=== PATIENT | female | born 1960 | race Caucasian/White ===

== ENCOUNTER 2016-05-30 23:25 | Inpatient (IN) | payer MEDICAID ==
[~2016-05-30] VITALS: Ht 157.5 cm; Wt 52.5 kg
--- NOTE | 2016-05-30 23:41 | NUR ---
PT TO ED LOBBY WITH FAMILY PENDING BED AVAILABILITY. SHE IS A&O X 4, BREATHING EVEN AND UNLABORED. NO VISUAL SIGNS OF ACUTE OR RESP DISTRESS NOTED.
--- NOTE | 2016-05-31 00:40 | NUR ---
PT IN RM
--- NOTE | 2016-05-31 02:05 | NUR ---
PATIENT SEEN WITH COMPLAINT OF ABDOMINAL PAIN AND VOMITING , REPORTS COLON CANCER. PATIENT WAS SEEN BY MD. PATIENT WANTSMEDICATION VIA HE LEFT CHEST PORT "O"CATH, SAME WAS CLEANED AND ACTIVATED, UNABLE TO ASPIRATE BLOOD, BUT FLUSHED WITH SALINE.PATIENT MEDICATED WITH MORPHINE AND ZOFRAN. SALINE BOLUS IS INFUSING.
[2016-05-31 02:21] LABS: CALCIUM 8.7 mg/dL (8.5-10.1); CARBON DIOXIDE 25.3 mmol/L (21-32); CHLORIDE SERUM 95 mmol/L (98-107); CREATININE SERUM 0.8 mg/dL (0.6-1.0); GFR1 > 60 mL/min; GLUCOSE SERUM 107 mg/dL (74-106); SODIUM SERUM 129 mmol/L (136-145)
[2016-05-31 02:25] LABS: ALKALINE PHOSPHATASE 205 U/L (46-116); ALT/SGPT 13 U/L (14-59); AST/SGOT 22 U/L (15-37); BILIRUBIN TOTAL 0.38 mg/dL (0.20-1.00); TOTAL PROTEIN, SERUM 7.2 g/dL (6.4-8.2)
[2016-05-31 02:28] LABS: ALBUMIN 1.8 g/dL (3.4-5.0); BASOPHIL % 0.3 % (0-2)
[2016-05-31 02:29] LABS: RED CELL DISTRIBUTION WIDTH 17.1 % (11.5-14.5)
[2016-05-31 02:32] LABS: PLATELET COUNT 879 x10^3mcL (130-400)
[2016-05-31 02:34] LABS: CK-MB < 0.5 ng/mL (0-3.6); CREATINE KINASE 30 U/L (26-192)
--- NOTE | 2016-05-31 02:44 | NUR ---
PATIENT RETURN FROM CT SCAN, SEEN SLEEPING AT THIS TIME.
[2016-05-31] MEDS ORDERED: OXYCODONE HYDRO10 M1 PO (03:48)
--- NOTE | 2016-05-31 04:02 | NUR ---
PATIENT IS SLEEPING. WAS MEDICATED WITH MORPHINE. PATIENT IS ADMITTED TO THE HOSPITAL. MRSA SWAB WAS DONE.
[2016-05-31 04:38] LABS: FREE T4 1.32 ng/dL (0.76-1.46); FREE THYROXINE INDEX 3.3 ug/dL (1.4-4.5); T4(THYROXINE) 8.3 ug/dL (4.7-13.3)
[2016-05-31 04:50] LABS: T3 TOTAL 0.57 ng/mL
[2016-05-31 05:00] LABS: MAGNESIUM 1.8 mg/dL (1.8-2.4)
[2016-05-31 05:15] LABS: PHOSPHOROUS 3.9 mg/dL (2.5-4.9)
[2016-05-31 05:17] LABS: CHOLESTEROL/HDL RATIO 9.5
--- NOTE | 2016-05-31 06:37 | NUR ---
PATIENT IS SLEEPING. NO DISTRESS.
--- NOTE | 2016-05-31 07:20 | NUR ---
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
--- NOTE | 2016-05-31 07:25 | NUR ---
ASSISTED PT ONTO BEDSIDE COMMODE, URINE SAMPLE COLLECTED AND SENT TO LAB, EMPTIED PT COLOSTOMY BAG
--- NOTE | 2016-05-31 07:29 | NUR ---
PT REPORTING 10/10 PAIN, STATES THAT THE MORPHINE "ISN'T WORKING", PER PT "THEY USUALLY GIVE ME SOMETHING ELSE BUT I CAN'T REMEMBER WHAT IT IS"; PAGE OUT TO DR. DOWNEY FOR POSSIBLE CHANGE IN PAIN MED ORDERS
--- NOTE | 2016-05-31 07:33 | NUR ---
SPOKE WITH DR. DOWNEY AND NOTIFIED HIM OF PT C/O PAIN, REPORTS HE WILL PLACE AN ORDER FOR DILAUDID
[2016-05-31 07:39] LABS: microscopic required? NO
--- NOTE | 2016-05-31 08:24 | NUR ---
PT SLEEPING, NO ACUTE DISTRESS, BREATHING IS EVEN AND UNLABORED
[2016-05-31 08:39] LABS: urine erythrocyte NEGATIVE (NEGATIVE)
--- NOTE | 2016-05-31 08:43 | NUR ---
PT AAO4, NO ACUTE DISTRESS, PAIN DECREASED TO 7/10, US AT BEDSIDE FOR BLE US
--- NOTE | 2016-05-31 08:45 | NUR ---
TRIED TO CALL REPORT TO MARY CASTRO, WILL CALL BACK, WITH A PATIENT
--- NOTE | 2016-05-31 08:59 | NUR ---
REPORT TO AUGUSTA CASTRO TO ASSUME CARE OF PT; PT TO BE TRANSFERRED TO ROOM 224B
--- NOTE | 2016-05-31 09:30 | NUR ---
REPORT TO EVELYN IN OR; EVELYN FROM OR IN ED TO TAKE PT TO SURGERY, SURGICAL CHECK LIST STARTED, DR. CARLA OLIVER IN ED AND GAVE INFORMED CONSENT FOR PROCEDURE, PT SIGNED CONSENT, NPO SINCE 1999 LAST NIGHT
[2016-05-31 10:27] LABS: AMPHETAMINE QUAL UR NONE DETECTED (NEG <=1000)
[2016-05-31] MEDS ORDERED: ELIQUIS5 MG PO (11:48)
--- NOTE | 2016-05-31 12:15 | NUR ---
Received patient from Recovery, awake and oriented x4, c/o 10/10 abdominal pain from transfer from [facility] to bed, repositioned up for comfort, colostomy to Rt abd with liquid stool noted, IV to rt wrist # 22 with Normal Saline; mid abdomen dressing C/D/I. SCD in place. Oriented to room and call light system, needs anticipated.
--- NOTE | 2016-05-31 12:26 | NUR ---
PAGED DR LAWRENCE TO CLARIFY HEPARIN ORDER.
--- NOTE | 2016-05-31 12:33 | NUR ---
REPAGED DR LAWRENCE.
--- NOTE | 2016-05-31 12:49 | NUR ---
PER EDMOND RODRIGUEZ TO START HEPARIN PROTOCOL.
--- NOTE | 2016-05-31 12:55 | NUR ---
Medicated for pain with Dilaudid 0.5mg IVP and IVF new bag hang, repositioned up for lunch, no acute distress noted; call light within reach.
--- NOTE | 2016-05-31 12:58 | NUR ---
CALLED AND SPOKE WITH PHARMACIST CONCERNING WEIGHT. PATIENT WEIGHTS 100LBS, 45KGS.
[2016-05-31 13:11] VITALS: BP 118/80
--- NOTE | 2016-05-31 13:38 | NUR ---
HEPARIN PROTOCOL INITIATED. HEPARIN INFUSING AT 5ML/HR. NEXT PTT CHECK IS 2000.
--- NOTE | 2016-05-31 13:45 | NUR ---
CALLED AND SPOKE WITH EDMOND RODRIGUEZ TO USE PORTACATH.
[2016-05-31 14:48] VITALS: BP 119/74
--- NOTE | 2016-05-31 15:07 | NUR ---
DR LAWRENCE IN TO SEE PATIENT. WANTS IV DC'D, CATHETER INTACT. SPOKE WITH PHARMACIST, FLAGYL, ZOSYN AND HEPARIN ARE COMPATIBLE. USING PORTACATH IN LEFT CHEST.
--- NOTE | 2016-05-31 16:17 | NUR ---
MEDICATED FOR PAIN WITH DILAUDID 0.5MG IVP FOR 10/01. REPOSITIONED FOR COMFORT. RT HIP CLEAN W/ NS AND WOUND CULTURE OBTAIN; PICTURE TAKEN. FAMILY REMAIN AT BEDSIDE. WILL SEND WOUND SAMPLE TO LAB PER DR. LAWRENCE ORDER. CALL LIGHT WITHIN REACH AND BED LOW IN POSITION.
[2016-05-31 17:03] VITALS: BP 115/74
--- NOTE | 2016-05-31 17:08 | NUR ---
Patient resting in bed with family members at bedside, request patient to sign release medical record, patient provide copies of medical record, copy and place in chart.
--- NOTE | 2016-05-31 17:41 | NUR ---
PATIENT RESTING IN BED EYE CLOSED, FAMILY REMAIN AT BEDSIDE. NO ACUTE DISTRESS NOTED, LT PORTACATH INTACT W/ IVF AND HEPARIN GTTS @ 500 UNITS/HR. DINNER TRAY PLACE ON TABLE DTR WILL ASSIST WITH MEAL. NEEDS ANTICIPATED, CALL LIGHT WITHIN REACH.
--- NOTE | 2016-05-31 19:59 | NUR ---
RECEIVED PT FROM PREVIOUS SHIFT NURSE. PT AOX4. TELE#2, SR. DENIES CP/PRESSURE. PULSES STRONG, NO EDEMA NOTED. LUNG SOUNDS CLEAR, ON RA. BOWEL SOUNDS ACTIVE. COLOSTOMY R ABD. GENERALIZED WEAKNESS, PT AMBULATORY WITH ASSISTANCE. R HIP WOUND, ABD WOUND WITH KERLIX GUAZE IN PLACE DRY AND INTACT. CENTRAL LINE, INTACT AND PATENT. FAMILY AT BEDSIDE. BED IN LOWEST POSITION. CALL LIGHT WITHIN REACH. WILL CONTINUE TO MONITOR.
[2016-05-31 21:30] VITALS: BP 132/78
--- NOTE | 2016-05-31 22:57 | NUR ---
REBOLUS WITH 2700U HEPARIN IV. DECREASED INFUSION BY 200 U/HOUR. PER PROTOCOL. VERIFIED BY MATTHEW HUDSON.
--- NOTE | 2016-06-01 03:37 | NUR ---
PT RESTING IN BED. RR EVEN AND UNLABORED. NO ACUTE DISTRESS NOTED. PT ASKED FOR PAIN MEDS, MEDICATED PER EMAR. IV INTACT AND PATENT. CALL LIGHT WITHIN REACH. BED IN LOWEST POSITION. WILL CONTINUE TO MONITOR.
--- NOTE | 2016-06-01 05:34 | NUR ---
REBOLUS WITH 2700U HEPARIN IV. INCREASED INFUSION BY 200 U/HOUR. PER HEPARIN PROTOCOL. VERIFIED BY MATTHEW HUDSON. NEW INFUSION RATE 900U/HOUR.
[2016-06-01 05:38] VITALS: BP 139/86
--- NOTE | 2016-06-01 06:52 | NUR ---
WOUND CARE PER ORDERS. PT TOLERATED WELL.
[2016-06-01 08:08] LABS: CALCIUM 8.5 mg/dL (8.5-10.1); CARBON DIOXIDE 22.9 mmol/L (21-32); CHLORIDE SERUM 103 mmol/L (98-107); CREATININE SERUM 0.9 mg/dL (0.6-1.0); GFR1 > 60 mL/min; GLUCOSE SERUM 109 mg/dL (74-106); MAGNESIUM 1.9 mg/dL (1.8-2.4); PHOSPHOROUS 3.5 mg/dL (2.5-4.9); POTASSIUM SERUM 3.8 mmol/L (3.5-5.1); SODIUM SERUM 135 mmol/L (136-145)
--- NOTE | 2016-06-01 08:08 | NUR ---
GAVE NORCO FOR COMPLAINTS OF BREAKTHROUGH PAIN.
[2016-06-01 09:12] VITALS: BP 140/87
[2016-06-01 10:16] LABS: PLATELET COUNT 830 x10^3mcL (130-400)
--- NOTE | 2016-06-01 11:00 | NUR ---
PAGE GATED THE [place] RECORDER WITH RESULTS OF H AND H AND PLATELETS. AWAITING ORDERS AT THIS TIME.
--- NOTE | 2016-06-01 11:13 | NUR ---
PATIENT RECEIVED ALERT AND ORIENTED TIMES FOUR. LARGE DRSSSING OT THE ABODMEN NTOED WITH WITH COLOSTOMY BAG IN PLACE AND SHE HAS BEEN EMPTYING INDICATED WITH SOFT STOOL. PATIENT HAS DIMINSIHED BREATH SOUNDS AND BOWEL SOUNDS ARE HYPOACTIVE AT THIST DEVONTE PATIENT HAS SOME TRACE EDEMA TO THE LOWER EXTREMITES AND HAS BEEN GIVEN PAIN MEDICATION FOR PAIN AT 620A ND IS EFFECTIVE AT HTIS TIME. CONTINUED ON IV ANTIBIOITCS AND NO ADVERSE REACTION NOTED. CONTINUED ON HEPARIN FOR NOTED CVT AND PATIEN TIS PENDING TFOR NEXT PTT INDICATED. MAGGIE HAS BBE OOB BUT IS WEAKN BUT TOLERATE DFAIR. SHE HAS A MEDIPORT JAIMEE THE LECFT CHEST WALL AND IS PATENT.PATIENT HAS VITALS AT THIS TIME AT 139/86, 18, 81, 97.3, 98% ON ROOM AIR. PATEINT WITH NOTED LABS OF PTT AT 32.5, CHLORIDE AT 95, NA AT 135, PATIENT TOLERATED DIET AND FLUIDS WELL. PATIEN THAS HX OF COLON CANCER AND LEFT LEG DVT. PATIENT AHS HAD A HEMICOLECTOMY, AND COLOSTOMY PLACEMENT. ASSISTED OOB AND SHE HAS BEEN WT DRESSING CHANGES DAILY TO THE ABDOMEN AND THERAHONEY APPLEID TOT HE BUTTOCK AREAS WELL. PATIENT WILL BE CONTINUE TO BE MONITORED FOR PAIN AND ANY ADVERSE REACTIONS TO PLAN OF CARE. T O
--- NOTE | 2016-06-01 11:24 | NUR ---
GAVE DILAUDID FOR PAIN AND WILL MONITOR FOR EFFECTIVENESS.
[2016-06-01 11:28] LABS: BAND NEUTROPHIL 2 % (0-10); MONOCYTE 3 % (0-7); SEGMENTED NEUTROPHILS 83 % (37-75); rbc morphology (normal/abnorm) ABNORMAL (NORMAL)
[2016-06-01 11:29] LABS: PLATELET MORPHOLOGY PLATELETS INCREASED
--- NOTE | 2016-06-01 13:12 | NUR ---
GAF MORENO FOR BREATHTHROUGH PAIN AND CALLED THE SHUTTLE BUS DRIVER FOR ORDERS INDICATED. AWAITING ORDERS.
[2016-06-01 13:21] VITALS: BP 141/87
--- NOTE | 2016-06-01 13:35 | NUR ---
P.T. 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 S:Pt WAS SEEN AWAKE & ALERT IN BED, SPEAKS [place]STA R[place]/BELARUSIAN, ORIENTED x4, ABLE TO FOLLOW COMMANDS, AGREEABLE & COOPERATIVE W/ P.T., DEMO ABD PAIN (P.S.10/01), NURSE TO MEDICATE; NO C/O DIZZINESS AT THIS TIME; SON IN ROOM & SUPPORTIVE. O:BED MOBILITY: INDEP W/ SIDERAIL IN SUPINE TO SIT TRANSFERS: CG/SBA IN SIT TO STAND W/ FWW GAIT: CG/SBA W/ FWW X 31 FT A: Pt DEMO GOOD RESPONSE TO P.T. SESSION; FALL RISK; REDUCED PACE GAIT; Pt EDUC ON SAFE GAIT, HEP, USE OF CALL LIGHT FOR NURSE ASSIST, ARIANA BALIZED UNDERSTANDING, GOOD FOLLOW THRU; UA=008/94, VE=028, O2 SAT ROOM AIR=96%; COLOSTOMY BAG. P: CONT PT ONCE DAILY 6X/WK X 1 WK; POC & DX DISCUSSED W/ RECONCILIATION ACCOUNTANT; WILL BENEFIT W/ P.T.; TRY STAIR TRNG NEXT TX IF ABLE. EVAL30 GCODES:[id number] [facility] REACH SCORE:24 inches [phone] Pt WANTS TO USE TOILET, REQ CG/SBA FOR TOILETTING W/ FWW, ABLE TO URINATE, ABLE TO PERFORM COLOSTOMY CARE INDEP; Pt EDUC ON HAND PLACEMENT FOR SAFE TRANSFERS; ASSISTED TO BED SAFELY; CALL FULLER, PHONE, TABLE IN REACH; APPRECIATIVE; ON ROOM AIR; CONT PT TA10
[2016-06-01 16:16] LABS: RED CELL DISTRIBUTION WIDTH 19.1 % (11.5-14.5)
[2016-06-01 16:19] LABS: PLATELET COUNT 868 x10^3mcL (130-400)
[2016-06-01 16:35] LABS: BAND NEUTROPHIL 3 % (0-10); BASOPHIL 0 % (0-2); MONOCYTE 3 % (0-7); SEGMENTED NEUTROPHILS 88 % (37-75); rbc morphology (normal/abnorm) ABNORMAL (NORMAL)
[2016-06-01 17:43] VITALS: BP 139/87
--- NOTE | 2016-06-01 18:15 | NUR ---
SEEN BY THE BAND HEAD SAW OPERATOR AND AWAITNG ANY NEW PLAN OF CARE. CONTINUED ON HEPARIN ORDERED AND THE PTT WAS AT 39.2 AND NEEDED BOLUSING AGAIN WITH 1800UNITS. RAISED THE LEVEL NOW TO 1200 PER HOUR. WILL CONTINUE TO MONITOR INDICATED. NEXT PTT AT 2000 TONIGHT. WILL ENDORSE TO THE NEXT SHIFT.
--- NOTE | 2016-06-01 20:03 | NUR ---
RECEIVED PATIENT IN BED AWAKE, ALERT AND ORIENTED WITH NO SIGN OF ACUTE DISTRESS NOTED. TELE# 2 NSR ON MONITOR, DENIES CHEST DISCOMFORT. PATIENT ON HEPARIN DRIP INFUSING AT 1100 UNITS /HR. MEDIPORT TO LEFT CHEST INTACT INFUSING NS AT 50ML/HR. COLOSTOMY BAG TO RT ABDOMEN WITH SMALL AMOUNT OF SOFT STOOL. DRESSING TO ABDOMEN NEWLY CHANGED BY AM SHIFT CDI. WILL CONTINUE TO MONITOR CALL LIGHT WITHIN REACH.
--- NOTE | 2016-06-01 21:09 | NUR ---
PTT-39.8 REBOLUS 1800 UNITS AND INCREASED INFUSION BY 1 ML/HR INFUSING THIS TIME AT 12ML/HR. NEXT PTT SCHEDULED AT 0100 AM.
[2016-06-01 21:25] VITALS: BP 144/83
--- NOTE | 2016-06-01 22:10 | NUR ---
C/O BACKPAIN AT SCALE OF 10/10 PER PATIENT, MEDICATED WITH DILAUDID 1MG IVP PRESCRIBED. K PAD TO BACK APPLIED. WILL CONTINUE TO MONITOR.
[2016-06-02] VITALS (7 sets, daily range): BP systolic 126–146; BP diastolic 80–93
--- NOTE | 2016-06-02 00:35 | NUR ---
AWAKE STILL C/O BACKPAIN ATS LIDIA OF 8/10 PER PATIENT, MEDICATED WITH PERCOCET PO PRESCRIBED.
--- NOTE | 2016-06-02 01:09 | NUR ---
SLEEPING AFTER PAIN MEDS WAS GIVEN. WILL CONTINUE TO MONITOR.
--- NOTE | 2016-06-02 02:03 | NUR ---
AWAKE THIS TIME C/O BACKPAIN AT SCALE OF 10/10 PER PATIENT, MEDICATED WITH DILAUDID 1MG IVP PRESCRIBED. WILL CONTINUE TO MONITOR.
--- NOTE | 2016-06-02 02:41 | NUR ---
PTT-95.2 HOLD HEPARIN INFUSION FOR 1 HR AND REDUCED BY 1 ML/HR PER HEPARIN PROTOCOL. NEXT PTT AT 0645 AM.
--- NOTE | 2016-06-02 05:06 | NUR ---
CHECKED AT INTERVALS FOR NEEDS AND COMFORT, ALL NEEDS ATTENDED. C/O BACKPAIN X3 THE ENTIRE SHIFT AND MEDCIATED PRESCRIBED.
--- NOTE | 2016-06-02 07:10 | NUR ---
REASSESSMENT DONE. PT AWAKE, COOPERATIVE OF CARE. C/O NAUSEA, BACK PAIN 12/01. WILL MEDICATE PER EMAR. DENIES CP, SOB. GENERALIZED WEAKNESS NOTED. WEAK PULSES TO LLE. IV INFUSING WELL TO LEFT CHEST WALL MEDIPORT. PT ON HEPARIN DRIP AT 11ML/HR. BED IN LOW POSITION, CALL LIGHT WITHIN REACH.
[2016-06-02 07:17] LABS: CALCIUM 8.1 mg/dL (8.5-10.1); CARBON DIOXIDE 22.6 mmol/L (21-32); CHLORIDE SERUM 104 mmol/L (98-107); CREATININE SERUM 0.8 mg/dL (0.6-1.0); GFR1 > 60 mL/min; GLUCOSE SERUM 97 mg/dL (74-106); MAGNESIUM 1.8 mg/dL (1.8-2.4); PHOSPHOROUS 2.9 mg/dL (2.5-4.9); POTASSIUM SERUM 3.8 mmol/L (3.5-5.1); SODIUM SERUM 135 mmol/L (136-145)
[2016-06-02 07:20] LABS: RED CELL DISTRIBUTION WIDTH 19.1 % (11.5-14.5)
[2016-06-02 07:21] LABS: PLATELET COUNT 765 x10^3mcL (130-400)
[2016-06-02 07:54] LABS: BAND NEUTROPHIL 2 % (0-10); MONOCYTE 4 % (0-7); SEGMENTED NEUTROPHILS 88 % (37-75); rbc morphology (normal/abnorm) ABNORMAL (NORMAL)
--- NOTE | 2016-06-02 10:30 | NUR ---
PTT RESULT: 37.4 ADJUSTED DRIP INFUSION RATE PER PROTOCOL. ORDERED PTT LAB FOR FOUR HRS.
--- NOTE | 2016-06-02 13:02 | NUR ---
P.T. NOTES CHART REVIEWED RECEVIED JTE, UPON P.T. ARRIVAL PT C/O SEVER PAIN NRSG MADE AWARE AND WILL GIVE PAIN MEDS. WILL RETURN AT A LATER TIME. CHIKA
--- NOTE | 2016-06-02 15:16 | NUR ---
P.T. NOTES 2ND ATTEMPT TO SEE PT HAD MULTIPLE FAMILY VISITORS, ON 3RD ATTEMPT WAS AT BEDSIDE DISUCCING PLAN OF CARE. WILL TRY TO SEE PT AT A LATER TIME. CHIKA
--- NOTE | 2016-06-02 15:25 | NUR ---
RECEIVED LAB VALUE FOR PTT: 52.7 NO CHANGE PER PROTOCOL, PTT ORDERED FOR 4HRS. HEPARIN INFUSINF AT 1200 UNITS/HR.
--- NOTE | 2016-06-02 15:38 | NUR ---
Initial Nutrition Assessment Dx: Sepsis 2/2 Abdominal wall abscess s/p I and D POD#1; Colon Cancer with metastasis s/p right hemicolectomy and colostomy, 09/2015 PMHx: Colon cancer, Left leg DVT PSHx: right hemicolectomy in 2016 with colostomy placement Labs: Na+ 135L, BG 97, Alb 1.8L, ALP 205H, TRIG 253H, CHOL 229H, WBC 11.6H, H/H 6.3/21L Meds: dilaudid, herparin, vitamin C 500mg daily, ferrous sulfate, zofran, prilosec, NS, Current Diet Order: Regular (05/31) PO Intakes: 50% L (05/31); 100% B (06/01); 50% B, 10% L (06/02) I/O's: 2717/842 (+1875) Colostomy Output: 300ml (06/02) Ht: 157.48cm,62". Wt:85 lbs, 38.55kg. BMI: 15.5 kg/m2 (Underweight- At risk for malnutrition) IBW:110 lb, 50 kg. %IBW: 77% (Moderate Deficit). UBW: pt unsure but has noted "lots of wt loss" Age: 55 Y/O F Food Allergies: dairy, does not like red meat Skin:wound to R buttock w/ dressing and sx wound to L abd wall s/p I+D . Fernando:16 Edema: None noted GI:+colostomy to RUQ, pt C/O nausea . Last BM: 1 semi-liquid stool on (06/02) RN Trigger: appers underweight/malnourished, unintentional wt loss > 10lbs in 1 month, admitted w/ potential risk dx, poor PO intake > 3 days Pt admitted w/ Sepsis 2/2 Abdominal wall abscess s/p I and D POD#1; Colon Cancer with metastasis s/p right hemicolectomy and colostomy, 09/2015. As per doctor's progress note 06/02- Pt still very weak, and pale looking. She is complaining of back pain and was still saying she did not want bilateral nephrostomy tubes place will d/w pt later when family is present. From previous med records her Pain management in [place] was percocet 10mg/325 q4hp. Will continue this and use dilaudid IV for breakthrough pain. Pt Hgb lower today; Dr. De La Rosa consulted. Pt in mild distress from back pain. HOB 30 degress eating breakfast on encounter. Pt asking for more pain medications changed to percocet 10mg. Pt has to decided POC. Dr. De La Rosa to see this afternoon to evaluate her Anemia. Pt seen at bedside w/ family x2 present, pt had significant wasting evident in buccals and neck, the RD observed the pt's lunch tray only 10% consumed, the pt requested interview in Pashto, the RD agreed and translated, reports not eating much for lunch d/t feeling tired, C/O nausea- denies other GI issues, the pt is unsure of wt hx but has noticed "lots of wt loss", at home the pt consumes 3 meals per day as prepared by family but some days she is unable to finish all the meals, the pt denies education on nutrition for cancer tx and requested education at bedside, the RD reviewed w/ pt and family on CA MNT at bedside, educational handout and nutrition health packet given w/ ensure coupons, the pt and family were highly receptive and engaged, the pt was open to trying Boost Plus daily to aid in low PO intakes. As per bed huddles 06/02- pt had I+D of abd abcess yesterday, pt will be seen by Dr. De La Rosa and be further evaluated for nephrostomy tubes for hydronephrosis. Malnutrition alert form completed 06/02/2016. Problem with: N: Yes. V: None. D: none. C: None. Problem with: Chewing: None. Swallowing: None. Current Appetite: Fair-poor d/t decrease in appetite, feeling sick Recent Weight Change: unable to assess. % Weight Change: unable to assess Vitamin/Supplement Use: none Diet at Home: 3 meals as prepared by family Physical Activity: none Education: none Estimated Nutritional Needs Based on IBW 110 lb, 50kg Energy: 2958-6409 kcal/day (30-35 kcal/kg for Colon CA, Wound Healing) Protein: 60-75 g/day (1.2-1.5 g/kg for Colon CA, Wound Healing) Fluid: 0966-7896 ml/day (30-35 ml/kg for Colon CA, Wound Healing) or per MD Nutrition Diagnosis 1. Severe Protein/Energy Malnutrition related to increased protein/energy needs 2/2 Colon Cancer with metastasis as evidenced by pt w/ BMI: 15.5, %IBW: 77, and significant buccal and neck wasting noted Intervention 1. Regular diet w/ Boost Plus (360kcals, 14g protein) daily. Max encouragement and make food preferences known. 2. Theragran daily. 3. Daily wts to assess trends. 4. Adjust zofran PRN Monitor/Evaluate Goal: PO intakes to meet >50 % of estimated needs w/ tolerance; No further wt loss during LOS Monitor: PO intakes/tolerance, labs, skin integrity, GI function, wt F/U in 2-3 days as HIGH risk (06/04-06/05)
--- NOTE | 2016-06-02 15:50 | NUR ---
PT NOTES TIME: 2974-1050 TA10',GT13' S:CHART REVIEWED AND CLEARED FOR PT BY RN. PATIENT IN SEMIFOWLER POSITION RESTING. PATIENT EXPRESSES 6/10 BACK PAIN (PREMEDICATED). PATIENT AGREEABLE TO PARTICIPATE IN THERAPY. IV LINE INTACT. O:BED: SBA SUPINE<->SIT WITH VC'S FOR PROPER LOG ROLLING, BODY MECHANICS AND PACING. TRANSFER: SBA/CGA SIT<->STAND WITH FWW WITH VC'S AND SEQUENCING FOR PROPER BODY MECHANICS. GAIT: CGA 45'x2 (IV POLE IN TOW). VC'S FOR ENERGY CONSERVATION AND PACING. PATIENT TENDS TO OVEREXERT HERSELF, NO LOB PRESENTED DURING GAIT. PATIENT HAS QUICK BARBARA NEEDING REMINDERS TO SLOW PACING FOR SAFETY WITH GOOD FOLLOW THRU. PATIENT EDUCATED WITH ENERGY CONSERVATION, PACING AND POSTURAL AWARENESS WITH GOOD FOLLOW THRU. PATIENT WAS ASSISTED TO RESTROOM WITH SUCCESSFUL VOID. PATIENT RETURNED SAFELY AND MADE COMFORTABLE IN BED WITH ALL LINES INTACT, TRAY AND CALL LIGHT IN REACH. PATIENT AND DAUGHTER (JUST ENTERED) COOPERATIVE AND APPRECIATIVE OF PT CARE, RN MADE AWARE. P:CONT WITH POC, PROGRESS DISCUSSED WITH PRIMARY PT.
--- NOTE | 2016-06-02 15:51 | NUR ---
1. Regular diet w/ Boost Plus (360kcals, 14g protein) daily. Max encouragement and make food preferences known. 2. Theragran daily. 3. Daily wts to assess trends. 4. Adjust zofran PRN
--- NOTE | 2016-06-02 18:10 | NUR ---
PT C/O PAIN AT BACK 11/01. MEDICATED PER EMAR, PT TOLERATED WELL. NO DISTRESS NOTED. PT TALKING TO FAMILY MEMBERS. CALL LIGHT WITHIN REACH.
--- NOTE | 2016-06-02 19:00 | NUR ---
CHANGED DRESSING TO ABDOMINAL WALL ABSCESS WOUND. PACKED WITH KERLIX GAUZE AND APPLIED ABD PAD. PT TOLERATED WELL. CALL LIGHT WITHIN REACH.
--- NOTE | 2016-06-02 20:31 | NUR ---
Awake and verbally responsive. No resp.distress noted. Denies pain at this time. Heparin drip remained on 1200units/hr. PTT-64.9 no change. Will check PTT daily. Colostomy intact. Right buttock and abd'l.wound with dressing cdi. Will cont.to monitor. Call light within reach. Family visiting.
--- NOTE | 2016-06-02 22:44 | NUR ---
Seen by Dr. Coleen De La Rosa with order noted to transfuse 1 unit of PRBC tonight. Pt.signed consent for blood tansfusion.
--- NOTE | 2016-06-02 23:40 | NUR ---
1 Unit prbc started and no adverse reaction noted. Will cont.to monitor
[2016-06-03 02:35] VITALS: BP 153/95
--- NOTE | 2016-06-03 03:07 | NUR ---
Blood transfusion completed. No untoward reaction noted. Assisted to the BR. Ambulated with slow steady gait. Medicated as ordered for c/o back pain.
--- NOTE | 2016-06-03 04:13 | NUR ---
Asleep at this time. Medicated with Dilaudid 1mg IV q3h prn for c/o back pain with relief. No n/v noted. Dressing change done to left abd'l.wound. Afebrile.
[2016-06-03 06:13] VITALS: BP 138/71
--- NOTE | 2016-06-03 08:00 | NUR ---
PT AWAKE ALERT AND ORIENTED X4, ABLE TO MAKE NEEDS KNOWN. MEDSURG PT. TRACE EDEMA TO BLE. LUNGS CTA, IS AT BEDSIDE PT ENCOUAGE TO USE 1OX AND HR. BOWLE SOUNDS ACTIVE, COLOSTOMY BAG TO RT UPPER ABD. BRP WITH ASSIST, CALL LIGHT IN REACH. DRESSING ASSESSED, SITE IS CDI. PT REPORTS PAIN IS A 7/10 WILL MEDICATE ACCORDING TO MAR. K-PAD IN PLACE TO THE LOWER BACK. PT HAS LEFT CHEST MEDI-PORT, AND LFA IV, BOTH SITES ARE PATENT AND INTACT. PT IS CALM AND COOPERAIVE WITH CARE, SWATHI CONTINUE TO MONITOR.
--- NOTE | 2016-06-03 08:00 | NUR ---
PT 79.2 HEPARIN INFUSION REDUCED BY 100U/HR NOW INFUSING AT 1100U/HR. PT ORDERED FOR REDRAW.
[2016-06-03 08:53] LABS: BASOPHIL % 0.1 % (0-2)
[2016-06-03 09:05] LABS: CALCIUM 8.4 mg/dL (8.5-10.1); CHLORIDE SERUM 102 mmol/L (98-107); CREATININE SERUM 0.8 mg/dL (0.6-1.0); GFR1 > 60 mL/min; GLUCOSE SERUM 89 mg/dL (74-106); POTASSIUM SERUM 3.6 mmol/L (3.5-5.1); SODIUM SERUM 134 mmol/L (136-145)
[2016-06-03 09:06] LABS: RED CELL DISTRIBUTION WIDTH 19.6 % (11.5-14.5)
[2016-06-03 09:07] LABS: PLATELET COUNT 765 x10^3mcL (130-400)
[2016-06-03 09:41] VITALS: BP 135/83
--- NOTE | 2016-06-03 11:00 | NUR ---
P.T. NOTES Pt CHART REVIEWED AND ATTEMPTED TO WORK WITH PATIENT FOR PT TREATMENT. Pt IS AWAKE W/FAMILY MEMBER IN ROOM. Pt DECLINED TO PARTICIPATE IN THERAPY AT THIS TIME. ASKED FOR PT TO COME BACK, STATING "MAYBE LATER". WILL FOLLOW UP. 1 PVE
--- NOTE | 2016-06-03 12:20 | NUR ---
DR PACHECO IN TO SEE PT, PT CRING AND MOVING IN PAIN, ORDERED 2MG MORPHINE TO BE GIVEN ALONG WITH PO PERCOCET.
--- NOTE | 2016-06-03 14:52 | NUR ---
PT NOTES TIME: 9635-0743 TE2',TA9',GT12', PVE((1) 1ST ATTEMPT) S:CHART REVIEWED AND CLEARED FOR PT BY RN. PATIENT IN SUPINE EXPRESSING HIGH ABDOMINAL PAIN 10/10 (RN AWARE AND WILL BE ADMINISTERING MEDICATION). WILL RETURN AT LATER TIME (PVE). RETURNED TO PATIENTS ROOM TO ATTEMPT THERAPY, FRIEND AND DAUGHTER AT BEDSIDE. PATIENT EXPRESSES 6/10 PAIN (PREMEDICATED) AND AGREEABLE TO PARTICIPATE IN THERAPY. IV LINE INTACT. O:BED: SBA SUPINE<->SIT VIA LOG ROLL WITH FEW TC'S AND VC'S PROVIDED FOR PROPER BODY MECHANICS AND PACING. TRANSFER: SBA/CGA SIT<->STAND WITH FWW AND 1 REMINDER ON PROPER HAND PLACEMENT ON PUSHOFF. GAIT: CGA FWW 50'x2 (IV POLE IN TOW). 1 REMINDER FOR POSTURAL AWARENESS, MAINTAINING CLOSE PROXIMITY TO FWW AND ENERGY CONSERVATION TECH. NO LOB PRESENTED, BUT 1 STANDING REST BREAK TAKEN FOR ENERGY CONSERVATION. INCREASED BARBARA NOTED WITH NO LOB PRESENTED DURING OR POST THERAPY. TE: SUPINE ANKLE DF/PF, HEEL SLIDES, SHOULDER SHRUGS/CIRCLES. ( TOLERATED). PATIENT EDUCATED ON PROPER ENERGY CONSERVATION TECH, POSTURAL AWARENESS, LOG ROLLING WITH GOOD FOLLOW THRU. PATIENT AND FAMILY COOPERATIVE AND APPRECIATIVE OF PT CARE, RN MADE AWARE. P:CONT WITH POC, PROGRESS DISCUSSED WITH PRIMARY PT.
--- NOTE | 2016-06-03 16:40 | NUR ---
DR PACHECO MADE AWARE OF PTS LEFT LEG SWELLING, STATED HE WILL BE IN TO SEE PT.
[2016-06-03 16:55] VITALS: BP 137/83
--- NOTE | 2016-06-03 17:20 | NUR ---
DR PERSON IN TO SEE PT.
--- NOTE | 2016-06-03 18:28 | NUR ---
PT RESTING IN BED DAUGHTER AT BEDSIDE, NO SIGNS OF DISTRESS CALL LIGHT IN REACH WILL CONTINUE TO MONITOR.
--- NOTE | 2016-06-03 19:23 | NUR ---
NURSE FROM [facility] HERE TO SEE THE PATIENT AND WILL CONTINUE TO MONITOR.
--- NOTE | 2016-06-03 20:00 | NUR ---
PT RECIEVED AAWKE ALERT AND ORIENTED,REG RESP NO SOB WITH FAMILY AT THE BEDSIDE,REG RESP NO SOB,ABDO IS SOFT WITH MID LOWER ABDOMINAL DRESSING AND LOOKS WET PER THE PATIENT DRESSING WAS NOT CHANGED TODAY,ALSO GAS COLOSTOMY BAG RT LOWER ABDO INTACT,PT HAS IV INFUSING TO THE LT CHEST MEDIPORT WITH THE SITE PATENT AND INTACT,KEPT CLEAN AND DRY TO TOUCH AND WILL CONTINUE TO MONITOR.
--- NOTE | 2016-06-03 21:00 | NUR ---
DRESSING WAS CHANGE TO THE ABDO ORDER AND WILL CONTINUE TO MONITOR.
--- NOTE | 2016-06-03 21:09 | NUR ---
JEANIE TALKING TO THE FAMILY AND PATIENT,PT SLEEPING SOUNDLY NO PAIN REPORTED AT THIS TIME AND WILL CONTINUE TO MONITOR.
--- NOTE | 2016-06-03 21:35 | NUR ---
PT WAS HELP TO THE BATHROOM AND WILL CONTINUE TO MONITOR.
--- NOTE | 2016-06-03 21:40 | NUR ---
PT WITH C/O OF BACK PAIN ARCHING IN NATURE AT THE SCALE OF 7/10,PT WAS MEDICATED WITH MORHINE 2 MG IV ORDER AND WILL CONTINUE TO MONITOR.
[2016-06-03 21:58] VITALS: BP 146/56
--- NOTE | 2016-06-03 23:43 | NUR ---
PT SLEEPING SOUNDLY AND WILL CONTINUE TO MONITOR.
--- NOTE | 2016-06-04 04:00 | NUR ---
PT SLEEPING SOUNDLY AND WILL CONTINUE TO MONITOR.
--- NOTE | 2016-06-04 05:00 | NUR ---
PT WAS HELP TO BATHROOM AND WILL CONTINUE TO MONITOR.
[2016-06-04 05:57] VITALS: BP 149/68
[2016-06-04 06:36] LABS: CALCIUM 8.2 mg/dL (8.5-10.1); CARBON DIOXIDE 21.5 mmol/L (21-32); CHLORIDE SERUM 102 mmol/L (98-107); CREATININE SERUM 0.8 mg/dL (0.6-1.0); GFR1 > 60 mL/min; GLUCOSE SERUM 93 mg/dL (74-106); POTASSIUM SERUM 3.3 mmol/L (3.5-5.1); SODIUM SERUM 136 mmol/L (136-145)
--- NOTE | 2016-06-04 06:47 | NUR ---
PT HAD A RESTING NIGHTNO CHNAG E IN CONDITION AT THIS TIME,KEPT CLEAN AND DRY TO TOUCH AND WILL CONTINUE TO MONITOR.
--- NOTE | 2016-06-04 08:00 | NUR ---
PT AWAKE A/O X4 ABLE TO MAKE NEEDS KNOWN. MEDSURG PT. LLE SWOLLEN MEASUREMENTS OBTAINED AND DOCUMENTED. LUNGS CTA, NO SOB NOTED. BRP AMBULATION WITH ASSIST DUE TO GENERALIZED WEAKNESS. WOUND TO THE ABD AND BUTTOCKS. C.O PAIN 8/10 TO BACK AND ABD. IV AND MEDIPORT PATENT. PT IS CALM AND COOPERATIVE WITH CARE AT THSI TIME, CALL LIGHT IN REACH WILL CONTINUE TO MONITOR.
[2016-06-04 08:02] LABS: RED CELL DISTRIBUTION WIDTH 19.8 % (11.5-14.5)
[2016-06-04 08:04] LABS: PLATELET COUNT 795 x10^3mcL (130-400)
--- NOTE | 2016-06-04 08:45 | NUR ---
DRS IN TO MAKE ROUNDS.
[2016-06-04 09:19] VITALS: BP 140/81
--- NOTE | 2016-06-04 10:30 | NUR ---
PT RESTING IN BE FAMILY AT BEDSIDE WILL CONTINUE TO MONITOR.
--- NOTE | 2016-06-04 12:14 | NUR ---
PT RESTIGN IN BED NO SIGNS OF DISTRESS CALL LIGHT IN REACH, PT STATED PAIN IS AT A TOLERABLE LEVEL WILL CONTINUE TO MONITOR.
[2016-06-04 12:18] LABS: rbc morphology (normal/abnorm) ABNORMAL (NORMAL)
--- NOTE | 2016-06-04 14:29 | NUR ---
PT NOTES TIME 0817-9123 S: CLEARED BY RN FOR P.T. TX. PATIENT IS AWAKE & ALERT IN A SEMI RDZ POSITION IN BED. AGREEABLE TO P.T. TX. C/O LOW BACK PAIN 10/01. PATIENT HAS BEEN MEDICATED FOR PAIN BY RN. O: VITALS AT REST BP 140/81, HR 101 BPM, SPO2 ON RA 97% BED MOBILITY: SUPINE<>SIT VIA LOGROLL INDEPENDENT. TRANSFER: SIT<>STAND W/ FWW CGA/SBA. TOILETING CGA/SBA. PATIENT REQUIRES VC W/ PROPER SEQUENCE FOR SIT<>STAND. GAIT: 45FT FWW CGA. PATIENT HAS INCREASE FLEXED POSTURE. VC GIVEN TO CORRECT POSTURAL ALIGNMENT. DECREASE GAIT VELOCITY. VC GIVEN TO INCREASE PROXIMITY OF FWW TO SELF. EDUCATED PATIENT ON RISK/COMPLICATIONS OF IMMOBILIZATION W/ G UNDERSTANDING. PATIENT'S GAIT DISTANCE IS LIMITED DUE TO WEAKNESS, DECREASE ENDURANCE, & PAIN ON LOW BACK DESPITE RECIEVING PAIN MEDICATION FROM RN. COOPERATIVE & APPRECIATIVE OF CARE. PATIENT IS SAFELY & COMFORTABLY IN A SEMI RDZ POSITION IN BED W/ CALL BUTTON & TABLE IN REACH. RN NOTIFIED. P: DISCUSSED W/ PRIMARY PHYSICAL THERAPIST [id number]',[id number]'
--- NOTE | 2016-06-04 17:22 | NUR ---
PT ASLEEP IN BED IV INFUSING NO SIGNS OF DISTRESS, CALL LIGHT IN REACH WILL CONTINUE TO MONITOR.
[2016-06-04 17:51] VITALS: BP 147/93
--- NOTE | 2016-06-04 18:47 | NUR ---
DRESSING CHANGE COMPLETED, WOUND TO THE ABD PACKED WITH MOIST GAUZE AND COVERED WITH CLEAN ADHESIVE ABD DRESSING. WOUND TO THE RIGHT BUTTOCKS CLEANED, THERAHONEY APPLIED, AND COVERED WITH AHDHERANT DRESSING.
--- NOTE | 2016-06-04 19:45 | NUR ---
RECEIVED PT IN BED, AWAKE/ALERT AND VERBALLY RESPONSIVE. RESP IS EVEN AND NOT LABORED ON ROOM AIR. NO C/O DIFFICULTY BREATHING. PT WAS JUST GIVEN PAIN MEDICATION ENDORSED BY MORNING NURSE. NO C/O PAIN AT THIS TIME. NO C/O NAUSEA OR DIZZINESS. IVF IS INFUSING WELL TO THE LEFT UPPER CHEST MEDIPORT. ABD IS SOFT AND FLAT. NOTED COLOSTOMY BAG TO THE RIGHT LOWER ABDOMEN. ALSO NOTED DRESSING CDI TO THE LEFT LOWER ABDOMEN. RADIAL AND PEDAL PULSES PALPABLE. TRACE EDEMA TO THE BLE, RIGHT LEG WAS ELEVATED ON PILLOW. PT IS ABLE TO MAKE NEEDS KNOWN AND ADVICED PT TO CALL FOR ANY HELP NEEDED. CALL LIGHT IS WITHIN REACH.
[2016-06-04 21:50] VITALS: BP 146/87
--- NOTE | 2016-06-04 23:10 | NUR ---
PT IS SLEEPING NOW. RESP IS NOT LABORED ON ROOM AIR. IVF INFUSING WELL. NO DISTRESS NOTED. WILL CONTINUE TO MONITOR.
--- NOTE | 2016-06-05 04:20 | NUR ---
PT IS SLEEPING. RESP IS WNL, ON ROOM AIR. IV INFUSING WELL TO THE LEFT CHEST MEDIPORT. NO C/O PAIN. WILL CONTINUE TO MONITOR.
[2016-06-05 05:44] VITALS: BP 161/97
--- NOTE | 2016-06-05 06:01 | NUR ---
PT IS NOW AWAKE. CHANGED THE COLOSTOMY BAG SINCE IT STARTED TO LEAK. NEW COLOSTOMY BAG IN PLACE. ALSO CHANGED THE DRESSING TO THE WOUND ON THE ABDDOMEN. SCHEDULED PAIN MEDICATION OXYCONTIN PO GIVEN. NO C/O NAUSEA RIGHT NOW. NO PROBLEM WITH RESPIRATION, BREATHING FREELY ON ROOM AIR. NOT IN ANY DISTRESS.
[2016-06-05 06:44] LABS: CALCIUM 8.4 mg/dL (8.5-10.1); CARBON DIOXIDE 23.7 mmol/L (21-32); CHLORIDE SERUM 102 mmol/L (98-107); CREATININE SERUM 0.9 mg/dL (0.6-1.0); GFR1 > 60 mL/min; GLUCOSE SERUM 106 mg/dL (74-106); SODIUM SERUM 136 mmol/L (136-145)
[2016-06-05 07:12] LABS: PLATELET COUNT 724 x10^3mcL (130-400)
--- NOTE | 2016-06-05 08:00 | NUR ---
PT AWAKE AND ALERT. TEMP 98.4. RESP 18 EVEN. TENDS TO TAKE SHALLOW BREATHS DUE TO INCREASE IN BACK DISCOMFORT. REPORTS "PAIN 6/10 TO LOW BACK." LAST HAD TORADOL IVP AT 0200 BY ABAP DEVELOPER AND OXYCONTIN 10MG AT 0554. STATES "THE OXYCONTIN IS NOT WORKING." DR PACHECO HERE. REVIEWED PAIN MANAGMENT. HE STATES "WILL SPEAK WITH DR PERSON AND ADJUST MEDS." BREATH SOUNDS DIMINISHED. NO COUGH OR SOB. PULSE OX 97% RA. ABD SOFT, BOWEL TONES PRESENT. COLOSTOMY RMQ WITH SEMI LOOSE BROWN STOOL IN BAG. NO LEAKAGE FROM APPLIANCE. DRESSING CDI TO LMQ AND LOWER BACK. VOIDING QS, WEARS PERIPAD FOR PERIODS OF URINE INCONTINENCE. NO EDEMA RIGHT LEG. SLIGHT SWELLING TO LLE. PULSES PRESENT. SKIN WARM TO TOUCH. REPORTS "HX BLOOD CLOT TO LEFT LEG BEFORE." MEDIPORT TO LEFT UPPER CHEST WITH PIZARRO NEEDLE IN PLACE. IVF NORMAL SALINE 10CC/HR. CONTINUE IV ANTIBIOTICS ORDERED. SIDE RAILS UP X2. CALL LIGHT IN REACH.
--- NOTE | 2016-06-05 08:55 | NUR ---
PT C/O LOWER BACK PAIN 12/01, TEARFUL. SPOKE WITH DR PACHECO, ORDER PLACED FOR IV MORPHINE. DS=291/87. MED WITH MORPHINE SULFATE 2MG IVP ORDERED. REPOSITIONED TO LEFT SIDE WITH PILLOW SUPPORT. KPAD APPLIED TO LOWER BACK. TO WORK WITH PHYSICAL THERAPY TODAY.
[2016-06-05 09:10] VITALS: BP 140/87
--- NOTE | 2016-06-05 09:20 | NUR ---
DR PACHECO ADJUSTED OXYCONTIN TO 20MG BID. CALL TO PHARMACY. LAST RECEIVED 10MG AT 0554. WILL ADD ADDITIONAL 10MG TO BE GIVEN THIS AM, THEN 20MG BID TO START AT 2100.
[2016-06-05 09:29] LABS: BAND NEUTROPHIL 0 % (0-10); BASOPHIL 0 % (0-2); MONOCYTE 8 % (0-7); SEGMENTED NEUTROPHILS 84 % (37-75)
[2016-06-05 09:33] LABS: rbc morphology (normal/abnorm) ABNORMAL (NORMAL)
--- NOTE | 2016-06-05 10:02 | NUR ---
PT REPORTS "BACK PAIN DOWN TO 6/10, BETTER." REVIEWED PO PAIN MEDS WITH PT. ALSO IV TORADOL REVIEWED. PHYSICAL THERAPY AT BEDSIDE. EKATERINA JOSEPH AT BEDSIDE. MED WITH TORADOL 30MG IVP AND ADDITIONAL DOSE OF OXYCONTIN 10MG PO. WILL CONTINUE TO MONITOR PAIN MANAGEMENT.
--- NOTE | 2016-06-05 10:15 | NUR ---
PT ABLE TO AMBULATE WITH FWW WITH PHYSICAL THERAPY IN HALLWAY. ASSIST BACK TO BED. DR PACHECO IN TO SEE PT. KPAD REMOVED FROM BED. PHYSICAL THERAPY PER DR BENNETT RECOMMENDATION TO APPLY COLD PACKS TO LOWER BACK TO HELP WITH BACK PAIN.
--- NOTE | 2016-06-05 11:54 | NUR ---
TELE #3 PLACED PER ORDER. READS SINUS TACH RATE 107. C/O DISCOMFORT 7/10 TO LOWER BACK. MED WITH METHADONE 10MG PO ORDERED. REVIEWED WITH PT AND FAMILY ACTIONS, SIDE EFFECTS AND SCHEDULE OF NEW MEDICATION. VERBALIZED UNDERSTANDING. WILL CONTINUE TO MONITOR.
--- NOTE | 2016-06-05 12:30 | NUR ---
PT REPORTS "PAIN LEVEL DOWN TO 5/10." PT SMILING. FAMILY AT BEDSIDE ASSISTING WITH LUNCH MEAL.
--- NOTE | 2016-06-05 14:21 | NUR ---
PT C/O LOWER BACK DISCOMFORT 08/01. MED WITH PERCOCET PO FOR BREAKTHROUGH PAIN. FAMILY AT BEDSIDE.
--- NOTE | 2016-06-05 15:39 | NUR ---
PT NOTES TIME 0264-7695 S: CLEARED BY RN FOR P.T. TX. PATIENT IS AWAKE & ALERT IN A SEMI RDZ POSITION IN BED. AGREEABLE TO P.T. TX. C/O PAIN ON LOW BACK 07/01. RN MEDICATED PATIENT FOR PAIN PRIOR TO TX. O: BED MOBILITY: SUPINE<>SIT VIA LOGROLL INDEPENDENT. TRANSFER: SIT<>STAND W/ FWW SBA/CGA. GAIT: 80FT W/ FWW CGA. PATIENT DEMO'S A DECREASE IN GAIT VELOCITY. FLEXED POSTURE. STEADY GAIT W/ USE OF FWW. PATIENT REQUIRES VC TO CORRECT POSTURAL ALIGNMENT. GAIT DISTANCE LIMITED DUE TO PAIN, WEAKNESS, & DECREASE ENDURANCE. EDUCATED PATIENT ON SAFETY FOR FALL PREVENTION W/ GOOD UNDERSTANDING. COOPERATIVE & APPRECIATIVE OF CARE. PATIENT IS SAFELY & COMFORTABLY IN A SEMI RDZ POSITION IN BED W/ CALL BUTTON & TABLE IN REACH. LEFT IN CARE OF SON. RN NOTIFIED. P: DISCUSSED W/ PRIMARY PHYSICAL THERAPIST [id number]',[id number]'
--- NOTE | 2016-06-05 15:41 | NUR ---
Follow-up Nutrition Assessment Dx: Sepsis 2/2 Abdominal wall abscess s/p I and D POD#1; Colon Cancer with metastasis s/p right hemicolectomy and colostomy, 09/2015 PMHx: Colon cancer, Left leg DVT PSHx: right hemicolectomy in 2016 with colostomy placement Labs: Na+ 136, BG 106; (05/31) Alb 1.8L, ALP 205H, TRIG 253H, CHOL 229H, WBC 10.2, H/H 9.1/29L Meds: vitamin C 500mg daily, ferrous sulfate, zofran, prilosec, NS, ferrlecit Current Diet Order: Regular w/ Boost Plus BID (05/31) PO Intakes: 50% L (05/31); 100% B (06/01); 50% B, 10% L (06/02); 50-95% (06/03); 80% (06/04); 50% (06/05) I/O's: 1690/510 (+1180ml) Colostomy Output: 300ml (06/02) Wt:85 lbs, 38.55kg. BMI: 15.5 kg/m2 (Underweight- At risk for malnutrition) Skin:wound to R buttock w/ dressing. Fernando:18 Edema: None noted GI:+colostomy to RUQ, pt C/O nausea . Last BM: 1 brown semi-loose stool on (06/05) Problem with: N: None. V: None. D: none. C: None. Current Appetite: Fair-Good/Improved Pt admitted w/ Sepsis 2/2 Abdominal wall abscess s/p I and D POD#1; Colon Cancer with metastasis s/p right hemicolectomy and colostomy, 09/2015. As per doctor's progress note 06/05- Pt seen ambulating with FWW at 1030 this morning, feeling well after oxycontin and toradol given. Pt will have pain medications changed to Methadone 10mg q12, and Oxycontin 10mg stopped tonight when first dose is given. Plan is to get neuropathic pain under control. Will follow up with Dr. Farfan for more recommendations as they come up. Spoke with son at bedside, there was confusion regarding long-term vs. SNF and how long pt would be there. It was endorsed she is not going to a long-term but going to a SNF for continued WC and antibiotics prior to returning to her residence to continue with hospice care under [facility]. Dr. Farfan's Note 06/04- pt appropriate for hospice, would benefit from SNF/[facility]. Does not have a skilled need at this time. The RD spoke to [facility] rep, states the family and pt are on board w/ the SNF for hospice and then continue when D/C home w/ [facility] plan. Spoke to RN, reports the pt consumed lunch but unsure of the amount, pt was very positive today and had many family members at bedside, denies GI issues at this time. Estimated Nutritional Needs Based on IBW 110 lb, 50kg Energy: 5492-4459 kcal/day (30-35 kcal/kg for Colon CA, Wound Healing) Protein: 60-75 g/day (1.2-1.5 g/kg for Colon CA, Wound Healing) Fluid: 3974-0681 ml/day (30-35 ml/kg for Colon CA, Wound Healing) or per MD Nutrition Diagnosis 1. No nutritional dx at this time d/t pt on hospice Intervention 1. C/W Regular diet w/ Boost Plus (720kcals, 28g protein) BID for overall QOL. Make food preferences known. Monitor/Evaluate Previous Goal: PO intakes to meet >50 % of estimated needs w/ tolerance-Met; No further wt loss during LOS-Likely Met Goal: Nutrition POC in-line w/ medical and family's POC Monitor: PO intakes/tolerance, labs, skin integrity, GI function, wt, nutrition+medical POC F/U in 7 days as LOW risk (06/12)
--- NOTE | 2016-06-05 15:42 | NUR ---
1. C/W Regular diet w/ Boost Plus (720kcals, 28g protein) BID for overall QOL. Make food preferences known.
[2016-06-05 17:10] VITALS: BP 147/93
[2016-06-05] MEDS ORDERED: FER300 PO (17:13)
[2016-06-05] MEDS ORDERED: KETOROLAC30 MG/ML IV (17:14)
[2016-06-05] MEDS ORDERED: PER5 PO (17:14)
[2016-06-05] MEDS ORDERED: ZOFI IV (17:14)
[2016-06-05] MEDS ORDERED: DOLOPHINE HCL10 MG PO (17:14)
[2016-06-05] MEDS ORDERED: ELA10 PO (17:14)
[2016-06-05] MEDS ORDERED: COU2 PO (17:14)
[2016-06-05] MEDS ORDERED: PRI20 PO (17:15)
[2016-06-05] MEDS ORDERED: THERA TABS1 TAB PO (17:15)
[2016-06-05] MEDS ORDERED: VITC PO (17:15)
[2016-06-05 17:16] VITALS: BP 140/87
--- NOTE | 2016-06-05 17:20 | NUR ---
WOUND CARE PROVIDED FOR WOUND TO LMQ ABD I&D SITE AND RIGHT UPPER HIP/SACRAL REGION. PHOTOS TAKEN FOR DISCHARGE. LMQ IRRIGATED WITH NORMAL SALINE. PACKED WITH KERLIX. COVER WITH SMALL ABD AND BORDER DRESSING. RIGHT UPPER HIP/SACRAL AREA CLEANSED WITH NORMAL SALINE. THERAHONEY APPLIED. COVERED WITH BORDER DRESSING. DR PACHECO HERE. ORDERS TO LEAVE IN PIZARRO NEEDLE AND HEPARINIZE PRIOR TO TRANSFER. NEEDLE WAS INSERTED 4-9-17. SITE CLEAR. TELE REMOVED AND RETURNED TO TELE UNIT. SALINE LOCK REMOVED LFA CATH TIP INTACT. TRANSFER INFORMATION REVIEWED WITH PT AND DTRS. VERBALIZED UNDERSTANDING.
--- NOTE | 2016-06-05 18:01 | NUR ---
C/O LOWER BACK DISCOMFORT 08/01. MED WITH TORADOL 30MG IVP. PORT FLUSHED WITH NORMAL SALINE. HEPARINIZED ORDERED. SALINE LOCK CAP APPLIED AND SECURED. ATE 75% DINNER MEAL. APPETTIE GOOD. NO C/O NAUSEA. COLOSTOMY BAG INTACT.
--- NOTE | 2016-06-05 18:35 | NUR ---
[facility] HERE. REPORT GIVEN. PT ABLE TO AMBULATE TO [facility]. MADE COMFORTABLE. [facility] PACKED BY DTRS. [facility] BOOK AND TRANSFER PACKET GIVEN TO TRANSPORT ATTENDANT. PT TRANSFERRED AT THIS TIME WITH BELONG[facility]. REPORTS "PAIN IS BETTER NOW 06/01."
== END 2016-06-05 18:35 | DRG 710 ==
LOC: ED 23:25 → DU 05-31 07:54 → MU 05-31 07:54 → DU 05-31 07:54 → MU 06-02 09:35 → DU 06-05 11:33
PROVIDERS: Emergency Medicine; Family Medicine; Surgery; ADMIT Family Medicine
PROC: 0W9F0ZZ Drainage of Abdominal Wall, Open Approach (ICD-10-PCS; principal; 2016-05-31 10:15)
PROC: 30233N1 Transfusion of Nonautologous Red Blood Cells into Peripheral Vein, Percutaneous Approach (ICD-10-PCS; 2016-06-02)
DX: A41.9 Sepsis, unspecified organism (principal); E43 Unspecified severe protein-calorie malnutrition; C79.9 Secondary malignant neoplasm of unspecified site; E87.1 Hypo-osmolality and hyponatremia; L02.211 Cutaneous abscess of abdominal wall; N13.1 Hydronephrosis with ureteral stricture, not elsewhere classified; C18.9 Malignant neoplasm of colon, unspecified; I82.413 Acute embolism and thrombosis of femoral vein, bilateral; D50.9 Iron deficiency anemia, unspecified; E78.5 Hyperlipidemia, unspecified; Z90.49 Acquired absence of other specified parts of digestive tract; Z86.718 Personal history of other venous thrombosis and embolism; Z79.01 Long term (current) use of anticoagulants; Z93.3 Colostomy status; Z68.21 Body mass index [BMI] 21.0-21.9, adult
CPT/HCPCS: 80307; 83880; 84439; 94150; 97116-GP; 97530-GP; G0480; J0330; J1170; J1642; J1644; J1885; J2250; J2270; J2405; J2543; J2704; J2916; J3010; J3480; J3490; J7030; J7050; P9016; Q0092; Q0163